=== PATIENT | male | born 1975 | race Caucasian/White ===

== ENCOUNTER 2020-10-03 11:15 | Emergency (ER) | payer SELFPAY ==
[~2020-10-03] VITALS: Ht 177.8 cm; Wt 142.0 kg
[2020-10-03 12:54] VITALS: BP 157/89
[2020-10-03] MEDS ORDERED: CLOT15CR23 TP (13:48)
--- NOTE | 2020-10-03 13:49 | PHYS DOC ---
Past Medical History Past Surgical History: Other Smoking Status: Current Every Day Smoker Alcohol Use: None General Adult EDM: Chief Complaint: PENIS PROBLEM HPI: HPI: Patient is a 45 year old male who presents with penis tip irritation, redness and states that last time he had this problem he got a fungal cream and that took care of it. He is not circumcised. He denies any penile discharge or concern for sexual transmitted disease. He denies any blood in his urine or urinary symptoms. He states it does burn when he pees but only at the tip because it is irritated. Only history is obesity and smoking. Review of Systems: Review of Systems: Constitutional: Denies fever or chills. [] Eyes: Denies change in visual acuity. [] HENT: Denies nasal congestion or sore throat. [] Respiratory: Denies cough or shortness of breath. [] Cardiovascular: Denies chest pain or edema. [] GI: Denies abdominal pain, nausea, vomiting, bloody stools or diarrhea. [] : Denies dysuria. + Burning with urination due to skin irritation of penis. [] Musculoskeletal: Denies back pain or joint pain. [] Integument: Denies rash. + Penile skin irritation [] Neurologic: Denies headache, focal weakness or sensory changes. [] Endocrine: Denies polyuria or polydipsia. [] Lymphatic: Denies swollen glands. [] Psychiatric: Denies depression or anxiety. [] Heart Score: C/O Chest Pain: No Risk Factors: Risk Factors: DM, Current or recent (<one month) smoker, HTN, HLP, family history of CAD, obesity. Risk Scores: Score 0 - 3: 2.5% MACE over next 6 weeks - Discharge Home Score 4 - 6: 20.3% MACE over next 6 weeks - Admit for Clinical Observation Score 7 - 10: 72.7% MACE over next 6 weeks - Early Invasive Strategies Physical Exam: PE: Constitutional: Well developed, well nourished, no acute distress, non-toxic osman earance. [] HENT: Normocephalic, atraumatic, bilateral external ears normal, oropharynx moist, no oral exudates, nose normal. [] Eyes: PERRLA, EOMI, conjunctiva normal, no discharge. [] Neck: Normal range of motion, no tenderness, supple, no stridor. [] Cardiovascular:Heart rate regular rhythm, no murmur [] Lungs & Thorax: Bilateral breath sounds clear to auscultation [] Abdomen: Bowel sounds normal, soft, no tenderness, no masses, no pulsatile masses. [] Skin: Warm, dry, no erythema, no rash. Yeast infection type. Irritation redness. [] Back: No tenderness, no CVA tenderness. [] Extremities: No tenderness, no cyanosis, no clubbing, ROM intact, no edema. [] Neurologic: Alert and oriented X 3, normal motor function, normal sensory function, no focal deficits noted. [] Psychologic: Affect normal, judgement normal, mood normal. [] Current Patient Data: Vital Signs: Vital Signs Date Time Temp Pulse Resp B/P (MAP) Pulse Ox O2 Delivery O2 Flow Rate FiO2 10/03/20 12:54 97.7 90 16 157/89 98 97.7 EKG: EKG: [] Radiology/Procedures: Radiology/Procedures: [] Course & Med Decision Making: Course & Med Decision Making Pertinent Labs and Imaging studies reviewed. (See chart for details) See HPI. Alert and oriented x4. Speaks in full clear sentences. Ambulatory steady gait. Afebrile. No penile discharge. Penile irritation room with some redness. No cellulitis. No CVA tenderness. [] Dragon Disclaimer: Marzena Disclaimer: This electronic medical record was generated, in whole or in part, using a voice recognition dictation system. Departure Departure Impression: Primary Impression: Balanitis Disposition: HOME / SELF CARE / HOMELESS Condition: STABLE Referrals: NO PCP (PCP) Patient Instructions: Balanitis and Foreskin Hygiene Additional Instructions: Follow-up with your primary care provider. Use medication as prescribed. Scripts Clotrimazole (CLOTRIMAZOLE) 15 Gm Cream..g. 1 OSMAN TP BID for 10 Days, #30 GM Prov: ISSAC KERN APRN 10/03/20 ISSAC KERN APRN Oct 03, 2020 13:49
[2020-10-03 13:54] LABS: BILIRUBIN,URINE NEGATIVE (NEG); CLARITY,URINE CLEAR; COLOR,URINE YELLOW; NITRITE,URINE NEGATIVE (NEG); PH,URINE 7.5 (<5.0-8.0); PROTEIN,URINE NEGATIVE (NEG-TRACE)
[2020-10-03 14:04] LABS: YEAST,URINE PRESENT /HPF
[2020-10-03 14:05] LABS: RBC,URINE 0 /HPF (0-2)
[2020-10-03 14:06] LABS: BACTERIA,URINE 0 /HPF (0-FEW)
== END 2020-10-03 14:36 | disposition home or self-care (01) ==
LOC: ER 11:15
DX: N48.1 Balanitis (principal); F17.200 Nicotine dependence, unspecified, uncomplicated
CPT/HCPCS: 81001; 99283